=== PATIENT | male | born 1995 ===

== ENCOUNTER 2019-03-21 12:04 | Emergency (ER) | payer BC ==
[2019-03-21] MEDS ORDERED: NACL 0.9% 1000 ML 1,000 ML IV ONE (12:18)
--- NOTE | 2019-03-21 12:24 | Emergency Department Report ---
ED Syncope HPI - General Chief Complaint: Syncope Stated Complaint: DEHYDRATED Time Seen by Provider: 03/21/19 12:16 Source: patient, EMS Exam Limitations: no limitations - History of Present Illness Initial Comments: Dany is a 24-year-old male that presents emergency room for lightheaded and dizziness as well as he exhaustion. Patient was brought in by EMS for evaluation. Patient was at the [employer] obstacle course. Patient states his outside in the heat. Patient states she became sweaty and lightheaded. Patient states they checked his vital signs his heart rate was up. Patient had an IV placed by EMS and given fluids and states he feels better. Timing/Prior Episodes: no prior history, single episode today Precipitating Factors: Positive: lightheadedness, rapid heart beat Context: standing, activity Loss of Consciousness: no loss of consciousness Current Symptoms: back to normal - Related Data Allergies/Adverse Reactions: Allergies No Known Allergies Allergy (Verified 03/21/19 12:18) ED Review of Systems ROS: Stated complaint: DEHYDRATED Other details as noted in HPI Comment: All other systems reviewed and negative Constitutional: denies: chills, fever Eyes: denies: eye pain, eye discharge, vision change ENT: denies: ear pain, throat pain Respiratory: denies: cough, shortness of breath, wheezing Cardiovascular: denies: chest pain, palpitations Endocrine: no symptoms reported Gastrointestinal: denies: abdominal pain, nausea, diarrhea Genitourinary: denies: urgency, dysuria Musculoskeletal: denies: back pain, joint swelling, arthralgia Skin: denies: rash, lesions Neurological: denies: headache, weakness, paresthesias Psychiatric: denies: anxiety, depression Hematological/Lymphatic: denies: easy bleeding, easy bruising ED Past Medical Hx - Past Medical History Previous Medical History?: No - Surgical History Past Surgical History?: No - Family History Family history: no significant - Social History Smoking Status: Never Smoker Substance Use Type: None ED Physical Exam - General Limitations: No Limitations General appearance: alert, in no apparent distress - Head Head exam: Present: atraumatic, normocephalic - Eye Eye exam: Present: normal appearance - ENT ENT exam: Present: mucous membranes moist - Neck Neck exam: Present: normal inspection - Respiratory Respiratory exam: Present: normal lung sounds bilaterally. Absent: respiratory distress, wheezes, rales - Cardiovascular Cardiovascular Exam: Present: regular rate, normal rhythm. Absent: systolic murmur, diastolic murmur, rubs, gallop - GI/Abdominal GI/Abdominal exam: Present: soft, normal bowel sounds. Absent: distended, tenderness, guarding - Rectal Rectal exam: Present: deferred - Extremities Exam Extremities exam: Present: normal inspection - Back Exam Back exam: Present: normal inspection - Neurological Exam Neurological exam: Present: alert, oriented X3 - Psychiatric Psychiatric exam: Present: normal affect, normal mood - Skin Skin exam: Present: warm, dry, intact, normal color. Absent: rash ED Course Vital Signs 03/21/19 03/21/19 12:19 12:25 Temperature 98.3 F Pulse Rate 79 Respiratory 16 Rate Blood Pressure 125/54 [Left] O2 Sat by Pulse 99 Oximetry - Reevaluation(s) Reevaluation #1: Is evaluation done. Patient states exam is negative. Patient appears to be having heat related illness. Patient will be given fluids. We will check patient's labs. 03/21/19 12:21 Reevaluation #2: I discussed all results with patient. Patient is stable for discharge. Patient will be discharged home. Patient agrees with plan of care. Patient given discharge instructions. Patient voiced understanding discharge instructions. 03/21/19 13:22 ED Medical Decision Making - Lab Data Result diagrams: 03/21/19 12:20 03/21/19 12:20 - EKG Data -: EKG Interpreted by Me EKG shows normal: sinus rhythm, axis, intervals, QRS complexes, ST-T waves Rate: normal - Medical Decision Making Patient is a 24-year-old male that presents emergency room for heat related ill ness. Patient given fluids. Patient responded well to therapy. Patient stable for discharge. Patient discharged home. Patient's labs unremarkable. - Differential Diagnosis dizziness. Lightheadedness. Heat related illness. Critical Care Time: Yes Critical care attestation.: If time is entered above; I have spent that time in minutes in the direct care of this critically ill patient, excluding procedure time. Critical Care Time: 35 minutes ED Disposition Clinical Impression: Lightheadedness, Dizziness, Dehydration Heat exhaustion Qualifiers: Encounter type: initial encounter Qualified Code(s): T67.5XXA - Heat exhaustion, unspecified, initial encounter Disposition: - TO HOME OR SELFCARE Is pt being admited?: No Does the pt Need Aspirin: No Condition: Stable Instructions: Dehydration (ED), Heat Exhaustion (ED) Additional Instructions: Patient to follow up with primary care in 2-3 days. Patient to avoid any strenuous activity or exercise or outside activities until cleared by primary care.. Patient to return to ER if condition worsens. Patient to rest. Patient increase water. . Patient to take Tylenol when necessary for pain. Time of Disposition: 13:23
[2019-03-21 12:25] VITALS: BP 125/54
[2019-03-21 12:40] LABS: Basophils % (Auto) 0.8 % (0.0-1.8); Eosinophils # (Auto) 0.1 K/mm3 (0.0-0.4); Eosinophils % (Auto) 1.2 % (0.0-4.3); Hematocrit 45.2 % (35.5-45.6); Lymphocytes # (Auto) 1.4 K/mm3 (1.2-5.4); Mean Corpuscular HGB Conc 33 % (32-34); Mean Corpuscular Volume 87 fl (84-94); Monocytes # (Auto) 0.5 K/mm3 (0.0-0.8); Platelet Count 190 K/mm3 (140-440); Red Blood Count 5.18 M/mm3 (3.65-5.03); Red Cell Distribution Width 13.5 % (13.2-15.2)
[2019-03-21 13:04] LABS: Calcium 8.9 mg/dL (8.4-10.2)
== END 2019-03-21 13:44 | disposition home or self-care (01) ==
LOC: ED 12:04
DX: T67.5XXA Heat exhaustion, unspecified, initial encounter (principal); E86.0 Dehydration; X58.XXXA Exposure to other specified factors, initial encounter
CPT/HCPCS: 36415; 80048; 85025; 93005; 93010; 96360; 99284; J7030